=== PATIENT | male | born 1955 | race Caucasian/White ===

== ENCOUNTER 2016-09-02 09:05 | Emergency (ER) | payer OTHER ==
[~2016-09-02] VITALS: Ht 170.2 cm; Wt 83.9 kg
[2016-09-02] MEDS ORDERED: SYMBICORT 16010.2 G1 IH (09:16)
[2016-09-02] MEDS ORDERED: SINGULAIR10 MG ORAL (09:16)
--- NOTE | 2016-09-02 09:25 | Emergency Room Report ---
History of Present Illness General Chief Complaint: Animal Bite Source: Patient Present Illness HPI Patient reports that while playing with his puppy dog this morning there was a break in the skin The dog is up-to-date with immunizations Patient however has not had tetanus update for over 12 years Denies any headache or visual changes denies any other injuries he does have several abrasions on the right forearm However there was more of a puncture type injury this morning Allergies: Coded Allergies: No Known Allergies (Unverified , 09/02/16) Patient History Past Medical History: see triage record Pertinent Family History: none Reviewed Nursing Documentation: PMH: Agreed, PSxH: Agreed Nursing Documentation-PMH Hx Asthma: Yes Review of Systems All Other Systems: negative except mentioned in HPI Physical Exam Vital Signs Date Time Temp Pulse Resp B/P Pulse Ox O2 Delivery O2 Flow Rate FiO2 09/02/16 09:10 97.5 75 16 145/80 99 Room Air Sp02 EP Interpretation: reviewed, normal General Appearance: well appearing, no apparent distress Head: normocephalic, atraumatic Eyes: bilateral eye EOMI, bilateral eye PERRL ENT: normal pharynx Musculoskeletal: normal inspection Neurologic: alert, oriented x3, responsive Skin: other - Several areas of abrasion throughout the right arm dorsally, one specific point which appears to be puncture wound at the mid forearm no obvious surrounding erythema, it does appear to break the dermis , Lymphatic: no adenopathy Medical Decision Making Diagnostic Impression: Primary Impression: Puncture wound Additional Impression: Abrasion ER Course Patient was provided with tetanus immunization There is no area requiring any further suturing or coverage patient had the area cleansed previously Given the puncture pathology patient was placed on antibiotics as well and will have close outpatient follow Last Vital Signs Date Time Temp Pulse Resp B/P Pulse Ox O2 Delivery O2 Flow Rate FiO2 09/02/16 09:10 97.5 75 16 145/80 99 Room Air Status: improved Disposition: HOME, SELF-CARE Condition: Improved Additional Instructions: Patient is provided with the discharge instructions notified to follow up with primary doctor in the next 2-3 days otherwise return to the er with any worsening symptoms. Please note that this report is being documented using DRAGON technology. This can lead to erroneous entry secondary to incorrect interpretation by the dictating instrument. YANIRA SANCHEZ D.O. Sep 02, 2016 09:25
[2016-09-02] MEDS ORDERED: AUGMENTIN 875-1 EAC1 ORAL (09:26)
[2016-09-02] MEDS ORDERED: TdaP Vaccine 0.5ml Syr IM ONE (09:30)
[2016-09-02 09:49] VITALS: BP 139/87
== END 2016-09-02 09:55 | disposition home or self-care (01) ==
LOC: EMR 09:45
DX: S51.851A Open bite of right forearm, initial encounter (principal); S50.811A Abrasion of right forearm, initial encounter; Z23 Encounter for immunization; J45.909 Unspecified asthma, uncomplicated; W54.0XXA Bitten by dog, initial encounter; Y92.9 Unspecified place or not applicable; Y99.8 Other external cause status
CPT/HCPCS: 90471; 90715; 99283

== ENCOUNTER 2016-11-23 17:54 | Inpatient (IN) | payer OTHER ==
[~2016-11-23] VITALS: Ht 170.2 cm; Wt 72.6 kg
[~2016-11-23 17:54] MED LIST: AUGMENTIN 875-1 EAC1 ORAL; SINGULAIR10 MG ORAL; SYMBICORT 16010.2 G1 IH
[2016-11-23] MEDS ORDERED: Pantoprazole Inj IV ONE (18:45)
[2016-11-23 19:15] VITALS: BP 123/81
[2016-11-23 19:19] LABS: BASOPHILS % (AUTO) 0.7 % (0.0-2.0); EOSINOPHILS % (AUTO) 0.5 % (0.0-3.0); LYMPHOCYTES % (AUTO) 27.6 % (20.0-45.0); MEAN CORPUSCULAR HEMOGLOBIN 32.4 PG (27.0-31.0); MEAN CORPUSCULAR HGB CONC 34.9 G/DL (32.0-36.0); MEAN CORPUSCULAR VOLUME 93 FL (80-99); MEAN PLATELET VOLUME 6.6 FL (6.5-10.1); MONOCYTES % (AUTO) 11.2 % (1.0-10.0); PLATELET COUNT 245 K/UL (150-450); RED BLOOD COUNT 5.39 M/UL (4.70-6.10); RED CELL DISTRIBUTION WIDTH 11.6 % (11.6-14.8); WHITE BLOOD COUNT 10.4 K/UL (4.8-10.8)
[2016-11-23 19:32] LABS: TROPONIN I < 0.30 ng/mL (<=0.30)
[2016-11-23 19:33] LABS: APPEARANCE,URINE CLEAR; KETONES,URINE NEGATIVE (NEGATIVE); LEUKOCYTE ESTERASE ,URINE NEGATIVE (NEGATIVE); NITRITE,URINE NEGATIVE (NEGATIVE); PH,URINE 6 (4.5-8.0); PROTEIN,URINE NEGATIVE (NEGATIVE); UROBILINOGEN,URINE NORMAL MG/DL (0.0-1.0)
[2016-11-23 19:33] LABS: ALANINE AMINOTRANSFERASE 22 U/L (3-41); ALBUMIN/GLOBULIN RATIO 1.3 (1.0-2.7); ANION GAP 15 (5-15); ASPARTATE AMINO TRANSFERASE 17 U/L (5-40); CALCIUM 10.1 mg/dL (8.6-10.2); CARBON DIOXIDE 27 mEQ/L (20-30); CHLORIDE 94 mEQ/L (98-107); CREATININE 1.2 mg/dL (0.7-1.2); GLOMERULAR FILTRATION RATE > 60 mL/min (>60); HEMOLYSIS 7; LIPASE 30 U/L (< 60); POTASSIUM 4.5 mEQ/L (3.4-4.9); SODIUM 136 mEQ/L (135-145); TOTAL PROTEIN 7.9 g/dL (6.6-8.7)
[2016-11-23 19:44] LABS: CKMB 2.8 ng/mL (< 6.7)
[2016-11-23 21:15] VITALS: BP 109/75
[2016-11-23] MEDS ORDERED: Morphine Sulfate 4mg/ml Inj IVP ONE (22:00)
[2016-11-23 23:15] VITALS: BP 130/76
--- NOTE | 2016-11-23 23:29 | Emergency Room Report ---
History of Present Illness General Chief Complaint: Abdominal Pain Source: Patient (AKIN RUSSO M.D.) Present Illness HPI 61-year-old male presents to ED complaining of abdominal pain times one day. Started this morning. Epigastric, sharp, 8/10, radiating to the chest. Notes nausea and vomiting. Denies shortness of breath. Has history of hiatal hernia. Denies fevers or chills. No other aggravating or relieving factors. Denies any other associated symptoms (AKIN RUSSO M.D.) Allergies: Coded Allergies: No Known Allergies (Unverified , 09/02/16) Patient History Past Medical History: other - hiatal hernia Past Surgical History: none Pertinent Family History: none Social History: Denies: alcohol use, drug use, smoking Immunizations: UTD Reviewed Nursing Documentation: PMH: Agreed, PSxH: Agreed (AKIN RUSSO M.D.) Nursing Documentation-PMH Hx Cardiac Problems: No Hx Hypertension: No Hx Pacemaker: No Hx Asthma: No Hx COPD: No Hx Diabetes: No Hx Cancer: No Hx Gastrointestinal Problems: Yes - hiatal hernia Hx Dialysis: No History Of Psychiatric Problem: No Hx Neurological Problems: No Hx Cerebrovascular Accident: No Hx Seizures: No (AKIN RUSSO M.D.) Review of Systems All Other Systems: negative except mentioned in HPI (AKIN RUSSO M.D.) Physical Exam Vital Signs Date Time Temp Pulse Resp B/P Pulse Ox O2 Delivery O2 Flow Rate FiO2 11/23/16 18:14 98.2 78 16 123/81 98 Room Air Sp02 EP Interpretation: reviewed, normal General Appearance: no apparent distress, alert, GCS 15, non-toxic Head: normocephalic, atraumatic Eyes: bilateral eye PERRL, bilateral eye normal inspection ENT: hearing grossly normal, normal pharynx, no angioedema, normal voice Neck: full range of motion, supple/symm/no masses Respiratory: chest non-tender, lungs clear, normal breath sounds, speaking full sentences Cardiovascular #1: regular rate, rhythm, no edema Cardiovascular #2: 2+ carotid (R), 2+ carotid (L), 2+ radial (R), 2+ radial (L) , 2+ dorsalis pedis (R), 2+ dorsalis pedis (L) Gastrointestinal: normal bowel sounds, soft, non-distended, no guarding, no rebound, tenderness - epigastric Rectal: deferred Genitourinary: normal inspection, no CVA tenderness Musculoskeletal: back normal, gait/station normal, normal range of motion, non- tender Neurologic: alert, oriented x3, responsive, motor strength/tone normal, sensory intact, speech normal Psychiatric: judgement/insight normal, memory normal, mood/affect normal, no suicidal/homicidal ideation Reflexes: 3+ bicep (R), 3+ bicep (L), 3+ tricep (R), 3+ tricep (L), 3+ knee (R) , 3+ knee (L) Skin: normal color, no rash, warm/dry, well hydrated Lymphatic: no adenopathy (AKIN RUSSO M.D.) Medical Decision Making Diagnostic Impression: Primary Impression: Pancreatitis Qualified Codes: K85.90 - Acute pancreatitis without necrosis or infection, unspecified Labs Test 11/23/16 18:50 11/23/16 19:20 White Blood Count 10.4 K/UL (4.8-10.8) Red Blood Count 5.39 M/UL (4.70-6.10) Hemoglobin 17.5 G/DL (14.2-18.0) Hematocrit 50.0 % (42.0-52.0) Mean Corpuscular Volume 93 FL (80-99) Mean Corpuscular Hemoglobin 32.4 PG (27.0-31.0) Mean Corpuscular Hemoglobin Concent 34.9 G/DL (32.0-36.0) Red Cell Distribution Width 11.6 % (11.6-14.8) Platelet Count 245 K/UL (150-450) Mean Platelet Volume 6.6 FL (6.5-10.1) Neutrophils (%) (Auto) 60.0 % (45.0-75.0) Lymphocytes (%) (Auto) 27.6 % (20.0-45.0) Monocytes (%) (Auto) 11.2 % (1.0-10.0) Eosinophils (%) (Auto) 0.5 % (0.0-3.0) Basophils (%) (Auto) 0.7 % (0.0-2.0) Sodium Level 136 mEQ/L (135-145) Potassium Level 4.5 mEQ/L (3.4-4.9) Chloride Level 94 mEQ/L (98-107) Carbon Dioxide Level 27 mEQ/L (20-30) Anion Gap 15 (5-15) Blood Urea Nitrogen 14 mg/dL (7-23) Creatinine 1.2 mg/dL (0.7-1.2) Estimat Glomerular Filtration Rate > 60 mL/min (>60) Glucose Level 107 mg/dL (74-106) Calcium Level 10.1 mg/dL (8.6-10.2) Total Bilirubin 1.0 mg/dL (0.0-1.2) Aspartate Amino Transf (AST/SGOT) 17 U/L (5-40) Alanine Aminotransferase (ALT/SGPT) 22 U/L (3-41) Alkaline Phosphatase 91 U/L (40-129) Total Creatine Kinase 163 U/L (38-174) Creatine Kinase MB 2.8 ng/mL (< 6.7) Creatine Kinase MB Relative Index 1.7 Troponin I < 0.30 ng/mL (<=0.30) Total Protein 7.9 g/dL (6.6-8.7) Albumin 4.5 g/dL (3.5-5.2) Globulin 3.4 g/dL Albumin/Globulin Ratio 1.3 (1.0-2.7) Lipase 30 U/L (< 60) Urine Color Pale yellow Urine Appearance Clear Urine pH 6 (4.5-8.0) Urine Specific [place] 1.015 (1.005-1.035) Urine Protein Negative (NEGATIVE) Urine Glucose (UA) Negative (NEGATIVE) Urine Ketones Negative (NEGATIVE) Urine Occult Blood Negative (NEGATIVE) Urine Nitrite Negative (NEGATIVE) Urine Bilirubin Negative (NEGATIVE) Urine Urobilinogen Normal MG/DL (0.0-1.0) Urine Leukocyte Esterase Negative (NEGATIVE) (AKIN RUSSO M.D.) ER Course Dr Russo signed out to me at 11pm to followup endorsement to Dr Brewer for admission For patient of Dr Arin Epperson texted Dr Brewer at 1244am after repeated calls by clinic charge nurse went unreturned/ unanswered (MIGUEL ORTEGA M.D.) CT/MRI/US Diagnostic Results CT/MRI/US Diagnostic Results : Imaging Test Ordered: CT Chest/Abd/pelvis Impression pancreatitis (AKIN RUSSO M.D.) Last Vital Signs Date Time Temp Pulse Resp B/P Pulse Ox O2 Delivery O2 Flow Rate FiO2 11/23/16 19:15 98.2 78 16 123/81 98 Room Air Status: improved (AKIN RUSSO M.D.) Disposition: ADMITTED INPATIENT Condition: Serious Referrals: [facility],REFERRING (PCP) AKIN RUSSO M.D. November 23, 2016 23:29 MIGUEL ORTEGA M.D. November 24, 2016 01:08
[2016-11-24] VITALS (7 sets, daily range): BP systolic 104–130; BP diastolic 58–75
[2016-11-24] MEDS ORDERED: SIMVASTATIN20 MG ORAL (01:35)
[2016-11-24] MEDS ORDERED: PROTONIX40 MG ORAL (01:36)
[2016-11-24] MEDS ORDERED: BREO ELLIPTA 11 EACH IH (03:35)
[2016-11-24] MEDS ORDERED: HYDROmorphone 1mg/ml Carpuject IVP PRN (03:45)
[2016-11-24] MEDS ORDERED: D5NS 1,000 ML IV SCH (05:00)
[2016-11-24] MEDS: Heparin 5000 units/ml inj SUBQ SCH ×2 (08:27→21:15)
--- NOTE | 2016-11-24 09:39 | Diagnostic Imaging Report ---
Indication: Chest and abdominal pain Technique: Continuous helical transaxial imaging of the chest, abdomen and pelvis was obtained from the lung bases to the pubic symphysis during intravenous contrast administration. Multiple phases of enhancement obtained. Coronal 2-D reformats were also obtained. Study obtained in a Siemens sensation [address] Total Dose length Product (DLP): [address] Dose Index Volume (CTDIvol): 18, 16 mGy Comparison: None Findings: There is focal area of inflammatory soft tissue stranding just below and partially involving the uncinate process of the pancreas. One or 2 small nodes may be present as well. In addition the adjacent third portion of the duodenum shows focal wall thickening and ill-definition of the wall indicative of duodenitis. Although somewhat atypical, the findings could be due to focal pancreatitis. Other possibilities include duodenal or periduodenal inflammation secondary to ulcer disease or an inflamed diverticulum or other inflammatory or infectious process of the dorsal mesenteric root. We are told that the patient's pancreatic enzymes are normal. There is certainly no evidence of fluid collection or abscess. There is no evidence of bowel obstruction. There is no pancreatic or biliary ductal dilatation and no evidence of ductal stones or gallstones. This the liver is low in attenuation consistent with fatty infiltration. The mesenteric vessels in the portal vein enhance normally. Tiny cyst noted within the right kidney. There is no hydronephrosis. No free fluid or free air identified. Urinary bladder is unremarkable. Mild calcification of aorta is noted. The lungs are essentially clear. Mediastinum and pulmonary negar appear unremarkable. The axilla. Clear. Mild endplate spurs are noted at multiple locations throughout the thoracic and lumbar spine. Impression: Small nodes in the dorsal mesenteric root with mild inflammation just inferior to the uncinate process and involving the third portion of the duodenum which appears inflamed. The nature of this is not known. Would consider duodenitis an ulcer disease, inflammed duodenal diverticulum perhaps. Would also consider infectious or inflammatory process involving peripancreatic nodes. This appears to be isolated finding. There is no adenopathy elsewhere identified. Clinical workup is needed. Followup suggested. Fatty liver. Small right renal cyst Mild atherosclerotic vascular disease The CT scanner at [facility] is accredited by the [employer] and the scans are performed using dose optimization techniques as appropriate to a performed exam including Automatic Exposure control.
[2016-11-24] MEDS: D5NS 1,000 ML IV SCH ×2 (10:17→21:14)
[2016-11-24] MEDS: metroNIDAZOLE 500mg tab ORAL SCH ×2 (10:17→21:14)
[2016-11-24] MEDS: Ciprofloxacin 500mg tab ORAL SCH ×2 (10:18→21:14)
[2016-11-24 11:18] LABS: ALANINE AMINOTRANSFERASE 19 U/L (3-41); ALBUMIN/GLOBULIN RATIO 1.1 (1.0-2.7); AMYLASE 42 U/L (10-110); ANION GAP 15 (5-15); ASPARTATE AMINO TRANSFERASE 15 U/L (5-40); CARBON DIOXIDE 24 mEQ/L (20-30); CHLORIDE 98 mEQ/L (98-107); CREATININE 0.9 mg/dL (0.7-1.2); GLOMERULAR FILTRATION RATE > 60 mL/min (>60); HEMOLYSIS 3; LIPASE 27 U/L (< 60); POTASSIUM 4.2 mEQ/L (3.4-4.9); SODIUM 137 mEQ/L (135-145); TOTAL PROTEIN 6.9 g/dL (6.6-8.7)
--- NOTE | 2016-11-24 12:13 | Diagnostic Imaging Report ---
Indication: Chest Pain Comparison: None A single view chest radiograph was obtained. Findings: Cardiomediastinal appearance is within normal limits for age. Pulmonary vascularity is appropriate. The diaphragmatic contour is smooth and costophrenic angles are sharp. No pleural effusions are identified. The bones are unremarkable. Impression: No acute findings
[2016-11-24] MEDS ORDERED: D5NS 1000ml IV ONE (15:24)
--- NOTE | 2016-11-24 18:17 | General Progress Note ---
Assessment/Plan Assessment/Plan Assessment - Epigastric abd pain - ? pancreatitis with normal enzymes - ? PUD in face of chronic PPI use - ? other (inflammatory bowel dz, ischemia, etc) - h/o colon polyp Recommendations - po diet as tolerated, since symptoms improving - continue PPI and avoid NSAID - check and Rx HP if positive - Eventual endoscopy and MRCP to evaluate the affected areas (can do as outpatient) - outpatient surveillance colonoscopy Subjective Allergies: Coded Allergies: No Known Allergies (Unverified , 09/02/16) Objective Last 24 Hour Vital Signs Date Time Temp Pulse Resp B/P Pulse Ox O2 Delivery O2 Flow Rate FiO2 11/24/16 16:00 97.5 52 19 104/60 94 Room Air 11/24/16 12:00 97.7 50 20 120/74 96 Room Air 11/24/16 08:00 97.3 50 19 110/68 94 Room Air 11/24/16 04:00 97.3 50 19 130/58 96 Room Air 11/24/16 02:51 97.9 59 18 111/75 96 Room Air 11/24/16 02:51 97.9 59 18 111/75 96 Room Air 11/24/16 01:15 97.9 57 16 107/66 96 Room Air 11/23/16 23:15 98.2 61 18 130/76 98 Room Air 11/23/16 22:31 98.2 11/23/16 21:15 98.2 65 15 109/75 98 Room Air 11/23/16 19:15 98.2 78 16 123/81 98 Room Air Intake and Output 11/23/16 11/24/16 19:00 07:00 Intake Total 1232 ml Balance 1232 ml IV Total 1232 ml # Voids 3 Laboratory Tests 11/23/16 18:50: White Blood Count 10.4, Red Blood Count 5.39, Hemoglobin 17.5, Hematocrit 50.0, Mean Corpuscular Volume 93, Mean Corpuscular Hemoglobin 32.4H, Mean Corpuscular Hemoglobin Concent 34.9, Red Cell Distribution Width 11.6, Platelet Count 245, Mean Platelet Volume 6.6, Neutrophils (%) (Auto) 60.0, Lymphocytes (%) (Auto) 27.6, Monocytes (%) (Auto) 11.2H, Eosinophils (%) (Auto) 0.5, Basophils (%) ( Auto) 0.7, Sodium Level 136, Potassium Level 4.5, Chloride Level 94L, Carbon Dioxide Level 27, Anion Gap 15, Blood Urea Nitrogen 14, Creatinine 1.2, Estimat Glomerular Filtration Rate > 60, Glucose Level 107H, Calcium Level 10.1, Total Bilirubin 1.0, Aspartate Amino Transf (AST/SGOT) 17, Alanine Aminotransferase ( ALT/SGPT) 22, Alkaline Phosphatase 91, Total Creatine Kinase 163, Creatine Kinase MB 2.8, Creatine Kinase MB Relative Index 1.7, Troponin I < 0.30, Total Protein 7.9, Albumin 4.5, Globulin 3.4, Albumin/Globulin Ratio 1.3, Lipase 30 11/23/16 19:20: Urine Color Pale yellow, Urine Appearance Clear, Urine pH 6, Urine Specific [place] 1.015, Urine Protein Negative, Urine Glucose (UA) Negative, Urine Ketones Negative, Urine Occult Blood Negative, Urine Nitrite Negative, Urine Bilirubin Negative, Urine Urobilinogen Normal, Urine Leukocyte Esterase Negative 11/24/16 10:20: Sodium Level 137, Potassium Level 4.2, Chloride Level 98, Carbon Dioxide Level 24, Anion Gap 15, Blood Urea Nitrogen 12, Creatinine 0.9, Estimat Glomerular Filtration Rate > 60, Glucose Level 136H, Calcium Level 9.0, Total Bilirubin 0.9 , Aspartate Amino Transf (AST/SGOT) 15, Alanine Aminotransferase (ALT/SGPT) 19, Alkaline Phosphatase 82, Total Protein 6.9, Albumin 3.7, Globulin 3.2, Albumin/ Globulin Ratio 1.1, Lipase 27, Amylase Level 42 Height (Feet): 5 Height (Inches): 7.00 Weight (Pounds): 160 BRIANA PITTMAN November 24, 2016 18:17
[2016-11-25] VITALS: BP 99/62
[2016-11-25 04:00] VITALS: BP 103/64
[2016-11-25] MEDS: metroNIDAZOLE 500mg tab ORAL SCH (05:30)
[2016-11-25] MEDS: Ciprofloxacin 500mg tab ORAL SCH (08:45)
[2016-11-25] MEDS: Heparin 5000 units/ml inj SUBQ SCH (08:46)
[2016-11-25 08:58] VITALS: BP 108/68
--- NOTE | 2016-11-25 09:35 | General Progress Note ---
Assessment/Plan Problem List: (1) Fatty liver ICD Codes: K76.0 - Fatty (change of) liver, not elsewhere classified SNOMED: [id number] (2) possible DU Assessment/Plan ppi needs out patient fu for EGD per chart pend dc today Subjective ROS Limited/Unobtainable: Yes Allergies: Coded Allergies: No Known Allergies (Unverified , 09/02/16) Subjective no c/o Objective Last 24 Hour Vital Signs Date Time Temp Pulse Resp B/P Pulse Ox O2 Delivery O2 Flow Rate FiO2 11/25/16 08:58 97.9 52 20 108/68 94 Room Air 11/25/16 04:00 97.0 50 16 103/64 92 Room Air 11/25/16 00:00 96.9 51 18 99/62 93 Room Air 11/24/16 21:00 98.2 53 20 119/75 98 Room Air 11/24/16 16:00 97.5 52 19 104/60 94 Room Air 11/24/16 12:00 97.7 50 20 120/74 96 Room Air Intake and Output 11/24/16 11/25/16 19:00 07:00 Intake Total 1995 ml 825 ml Balance 1995 ml 825 ml Intake Oral 1320 ml IV Total 675 ml 825 ml # Voids 3 2 Laboratory Tests 11/24/16 10:20: Sodium Level 137, Potassium Level 4.2, Chloride Level 98, Carbon Dioxide Level 24, Anion Gap 15, Blood Urea Nitrogen 12, Creatinine 0.9, Estimat Glomerular Filtration Rate > 60, Glucose Level 136H, Calcium Level 9.0, Total Bilirubin 0.9 , Aspartate Amino Transf (AST/SGOT) 15, Alanine Aminotransferase (ALT/SGPT) 19, Alkaline Phosphatase 82, Total Protein 6.9, Albumin 3.7, Globulin 3.2, Albumin/ Globulin Ratio 1.1, Amylase Level 42, Lipase 27 Height (Feet): 5 Height (Inches): 7.00 Weight (Pounds): 160 General Appearance: alert EENT: PERRL/EOMI Neck: supple Cardiovascular: normal rate Respiratory/Chest: lungs clear Abdomen: normal bowel sounds, non tender, soft Extremities: non-tender SANDY IBARRA November 25, 2016 09:35
[2016-11-25] MEDS ORDERED: D5NS 1000ml IV ONE (10:59)
--- NOTE | 2016-11-26 00:31 | Discharge Summary ---
DATE OF ADMISSION: 11/23/2016 DATE OF DISCHARGE: 11/25/2016 ADMISSION DIAGNOSIS: Pancreatitis. DISCHARGE DIAGNOSIS: Abdominal pain, possible duodenitis versus peptic ulcer disease versus inflammatory bowel disease. HOSPITAL COURSE: The patient is a pleasant male admitted with abdominal pain. His had several days of worsening abdominal pain, radiating to the back. He had a CAT scan of the abdomen that showed diffuse inflammation of the pancreas. This was on a night read. He was admitted with a presumptive diagnosis of pancreatitis, but his enzymes were normal. On further review of the CAT scan, it appeared that the inflammation was possibly involving the proximal small bowel. The patient had no fevers or chills. No diarrhea. No nausea. No vomiting. He was seen by GI. It was thought that the patient possibly had peptic ulcer disease, could not rule out inflammatory bowel disease. The patient was tolerating POs and pain had improved. It was recommended that he follow up with his surg nurse on Sunday. He will be continued on his PPI. Copies of the CAT scan are being sent with the patient so that he can show it to his surg nurse. DIET: Regular diet. ACTIVITY: Ad-sigifredo. Evens Brewer M.D. DR: CATHERINE JOB#: [id number] CC:
--- NOTE | 2016-11-27 08:31 | Consultation ---
DATE OF CONSULTATION: 11/24/2016 GASTROENTEROLOGY CONSULTATION CONSULTING PHYSICIAN: Abdulkadir Martin M.D. CHIEF COMPLAINT: I was asked to see this patient for evaluation of abdominal pain. HISTORY OF PRESENT ILLNESS: The patient is a pleasant 61-year-old white man who was in his usual state of health until two days ago when he noticed new onset severe epigastric abdominal pain radiating to his back. There was no change with eating and no change in bowel habits. The pain was constant, and the patient recalled he was on a dose of ibuprofen before this pain started and there was no other new medication that he took. He had been on long-term course of Protonix on a daily basis for a history of acid reflux. He does not drink alcohol. No previous history of pancreatitis or gallstones. He had an endoscopy approximately four years ago for a history of reflux and hiatal hernia. He has had a colonoscopy perhaps about 6 to 7 years ago showing some colonic polyps. However, usually he has no long-term gastrointestinal symptoms. During the process of admission, a CT scan was done showing some inflammatory changes around the pancreas; however, his amylase and lipase was normal. He reports improvement today and he has been given some antibiotics. PAST MEDICAL HISTORY: Notable for history of acid reflux, on long-term acid suppression, history of hypercholesterolemia, and history of asthma. MEDICATIONS: Medications as an outpatient include Protonix, simvastatin, and Azmacort. ALLERGIES: None. SOCIAL HISTORY: The patient is . He does not smoke or drink alcohol. FAMILY HISTORY: Positive for breast cancer in a sister, ovarian cancer in another sister. REVIEW OF SYSTEMS: Otherwise negative. PHYSICAL EXAMINATION: GENERAL: The patient is a pleasant white man, seen in his room with his at bedside. HEENT: Normocephalic and atraumatic. Sclerae anicteric. Oropharynx is clear. NECK: Supple. CHEST: Clear to auscultation. CARDIOVASCULAR: Revealed a regular rate. ABDOMEN: Soft. Good bowel sounds. There is some mild epigastric and abdominal tenderness to deep palpation without guarding or rebound. There is otherwise no abnormalities on abdominal examination. EXTREMITIES: No edema. NEUROLOGIC: Nonfocal. LABORATORY AND DIAGNOSTIC DATA: CT scan were noted. ASSESSMENT: This patient presents with epigastric abdominal pain radiating to his back, which is a typical pathology found in the region identified by the CT scan. However, the cause of this abnormality is unclear. If it is pancreatitis, then it is puzzling that his amylase and lipase are normal. Normal amylase and lipase rule out pancreatitis, which would be the more likely cause in this setting. but this is unusual since he is already on Protonix on a daily basis. He did take one dose of ibuprofen before his pain started and that would typically be a risk factor for acid-blocking medication. In any case in this scenario, he is significantly better and he is tolerating clear liquid diet today and therefore he can be managed conservatively. The role of antibiotics remains unclear but starting the course, in case would be reasonable empirically. I will continue Protonix and advance the diet slowly while following his exam. Should he continue to improve, he can be discharged. However, I have advised him the swallowing evaluation as an outpatient soon after discharge or perhaps as an inpatient if he ends up remaining in the hospital. He should have an endoscopy to evaluate the duodenum for any peptic ulcer disease or other resulting in the same pathology. He should also have an MRCP of the biliary tract to evaluate the patient for small stones or pancreas or biliary pathology. He has not had a colonoscopy for about 6 to 7 years and he has had polyps before and therefore a colonoscopy can be done at the same time of the endoscopy for a definite indication. Helicobacter pylori should also be checked and this can be done at the time of endoscopy or by other means such as or a stool test. RECOMMENDATIONS: Per above discussion and per orders written in the chart. Thank you for asking me to participate in the care of this patient. Abdulkadir Maritn M.D. DR: Afshin JOB#: [id number] CC:
== END 2016-11-25 11:00 | disposition home or self-care (01) | DRG 392 ==
LOC: EMR 18:30 → EDBEDREQ 22:05 → 4E 23:17 → EDBEDREQ 23:34
DX: R10.9 Unspecified abdominal pain (principal); K27.9 Peptic ulcer, site unspecified, unspecified as acute or chronic, without hemorrhage or perforation; K29.80 Duodenitis without bleeding; K52.3 Indeterminate colitis
CPT/HCPCS: 36415; 71010; 71260; 74177; 80053; 81003; 82150; 82550; 82553; 83690; 84484; 85025; J2405

== ENCOUNTER 2019-04-27 11:09 | Emergency (ER) | payer MEDICARE, OTHER ==
[~2019-04-27] VITALS: Ht 170.2 cm; Wt 74.8 kg
[~2019-04-27 11:09] MED LIST changes: +BREO ELLIPTA 11 EACH IH; +PROTONIX40 MG ORAL; +SIMVASTATIN20 MG ORAL
[2019-04-27 11:34] VITALS: BP 133/76
--- NOTE | 2019-04-27 11:36 | NUR ---
ER Nurse Note: Patient walked in to ER from home due to Rt eye redness and discomfort. Patient alert and oriented x4 and amulatory. Skin clean and intact. Calm and cooperative. No acute distress noted at this time. Rt eye redness noted but no discharge.
[2019-04-27] MEDS ORDERED: Fluorescein Strips RIGHT EYE ONE (11:45)
[2019-04-27] MEDS ORDERED: Tetracaine 0.5% Opth 4ml Soln RIGHT EYE ONE (11:45)
[2019-04-27] MEDS ORDERED: GENTAK5 ML RIGHT EYE (12:03)
[2019-04-27 12:09] VITALS: BP 126/88
--- NOTE | 2019-04-27 12:09 | NUR ---
ED Nurse Note: Pt cleared by health care Provider for discharge. DC instructions was given and explained to pt and verbalized understanding of teachings. All medical deviecs such as ID band removed. Pt is AAO x4, ambulatory and left with all personal belongings.
--- NOTE | 2019-04-27 21:12 | Emergency Room Report ---
History of Present Illness General Chief Complaint: Eye Problems Source: Patient Present Illness HPI Patient presented after foreign material entered his eye while at a dentists office. He states that dentist was drilling some porcelain which flew into his eye.Injury occurred two days prior to arrival. He reports foreign body sensation.Patient reports having normal vision. He denies current foreign body sensation. He denies any other locations of injury. He reports having mild pain to the right eye. Allergies: Coded Allergies: No Known Allergies (Unverified , 09/02/16) Patient History Past Medical History: see triage record Reviewed Nursing Documentation: PMH: Agreed; PSxH: Agreed Nursing Documentation-PMH Past Medical History: No History, Except For Hx Cardiac Problems: No Hx Hypertension: No Hx Pacemaker: No Hx Asthma: Yes Hx COPD: No Hx Diabetes: No Hx Cancer: No Hx Gastrointestinal Problems: No Hx Dialysis: No Hx Neurological Problems: No Hx Cerebrovascular Accident: No Hx Seizures: No Review of Systems All Other Systems: negative except mentioned in HPI Physical Exam Vital Signs Date Time Temp Pulse Resp B/P (MAP) Pulse Ox O2 Delivery O2 Flow Rate FiO2 04/27/19 11:15 98.4 55 16 133/76 (95) 97 Room Air General Appearance: well appearing, no apparent distress, alert, GCS 15 Head: normocephalic, atraumatic Eyes: bilateral eye PERRL, bilateral eye other - right eye foreign body in lower conjunctiva laterally ENT: hearing grossly normal, normal voice Neck: full range of motion, supple Respiratory: no respiratory distress, no accessory muscle use, speaking full sentences Cardiovascular #1: normal inspection Gastrointestinal: normal inspection, non tender Musculoskeletal: no calf tenderness Neurologic: normal inspection, alert, oriented x3, responsive, normal gait Psychiatric: mood/affect normal Skin: no rash Medical Decision Making Diagnostic Impression: Primary Impression: Foreign body of eyelid, right ER Course Patient presented for foreign body to the right eyelid. Differential diagnosis include was not limited to foreign body, globe rupture, conjunctival abrasion, corneal abrasion among others. Patient has a benign exam and does not appear to require any imaging or laboratory testing at this time. Patient is noted to have some foreign material to the lateral aspect of the right lower eyelid. I attempted to remove foreign body with forceps after anesthesia with tetracaine. This appeared to be porcelain and had some surrounding conjunctiva preventing removal without incision. Patient appears to be in no acute distress and does not have any evidence of acute orbital injury. Visual acuity in the affected eye appears to be preserved. Patient was advised to follow-up with ophthalmology for definitive removal. He was given prescription for topical antibiotics.Patient was advised to return if he had any worsening condition or any concerns. Last Vital Signs Date Time Temp Pulse Resp B/P (MAP) Pulse Ox O2 Delivery O2 Flow Rate FiO2 04/27/19 12:09 98.2 75 16 126/88 98 Room Air Status: improved Disposition: HOME, SELF-CARE Condition: Stable Scripts Gentamicin Sulfate* (GENTAK*) 5 Ml Drops 1 DROP RIGHT EYE Q4H, #1 DROP 0 Refills Prov: Brandon Leroy MD 04/27/19 Referrals: OPHTHALMOLOGY Patient Instructions: Eye Foreign Body Additional Instructions: Follow up with ophtalmology for removal of eyelid foreign body. Brandon Leroy MD Apr 27, 2019 21:12
== END 2019-04-27 12:10 | disposition home or self-care (01) ==
LOC: EMR 11:35
DX: S00.251A Superficial foreign body of right eyelid and periocular area, initial encounter (principal); W20.8XXA Other cause of strike by thrown, projected or falling object, initial encounter; Y92.531 Health care provider office as the place of occurrence of the external cause; J45.909 Unspecified asthma, uncomplicated
CPT/HCPCS: 99283